=== PATIENT | male | born 1955 | race Caucasian/White ===

== ENCOUNTER 2019-12-06 12:34 | Emergency (ER) | payer BC, MEDICARE ==
[~2019-12-06] VITALS: Ht 195.6 cm; Wt 86.1 kg
[2019-12-06] MEDS ORDERED: SODIUM CHLORIDE FLUSH 10ML SYR IVF ONE (14:00)
[2019-12-06] MEDS ORDERED: SODIUM CHLORIDE 0.9% 1,000ML IVBOLUS ONE (14:00)
[2019-12-06 14:14] LABS: BASOPHILS # (AUTO) 0.01 x10^3/uL (0-0.1); BASOPHILS % (AUTO) 0 % (0-1); EOSINOPHILS # (AUTO) 0.05 x10^3/uL (0-0.4); EOSINOPHILS % (AUTO) 1 % (1-7); LYMPHOCYTES # (AUTO) 1.13 x10^3/uL (1-3.4); LYMPHOCYTES % (AUTO) 13 % (22-44); MD NO; MEAN CORPUSCULAR HEMOGLOBIN 29.3 pg (27.5-34.5); MEAN CORPUSCULAR HGB CONC 32.7 g/dL (33.2-36.2); MEAN CORPUSCULAR VOLUME 89.3 fL (81-97); MEAN PLATELET VOLUME 8.9 fL (7.4-10.4); MONOCYTES # (AUTO) 0.38 x10^3/uL (0.2-0.8); MONOCYTES % (AUTO) 4 % (2-9); NEUTROPHILS # (AUTO) 7.06 x10^3/uL (1.8-6.8); NEUTROPHILS % (AUTO) 82 % (42-75); PLATELET COUNT 314 x10^3/uL (130-400); RED BLOOD COUNT 3.77 x10^6/uL (4.38-5.82); RED CELL DISTRIBUTION WIDTH 17.4 % (9.4-14.8)
--- NOTE | 2019-12-06 14:19 | NUR ---
ISOLATION CART PLACED OUTSIDE PT ROOM, PT MADE AWARE AND SUPPLIED WITH ITEMS FOR FECAL COLLECTION. PT STATED "HE TOOK AMMODIUM AND WILL NOT HAVE TO GO FOR A WHILE"
[2019-12-06 14:26] LABS: ALBUMIN 1.9 g/dL (3.4-5.0); ANION GAP 7 mmol/L (5-15); CHLORIDE 106 mmol/L (98-107)
[2019-12-06 14:29] LABS: ALANINE AMINOTRANSFERASE 71 U/L (12-78); ALKALINE PHOSPHATASE 498 U/L (45-117); BILIRUBIN,TOTAL 0.7 mg/dL (0.2-1.0); CREATININE 0.94 mg/dL (0.7-1.3); TOTAL PROTEIN 7.9 g/dL (6.4-8.2)
--- NOTE | 2019-12-06 14:57 | NUR ---
pt resting in bed , pt denied genia wants or needs at this time, pt on monitor and teletypewriter installer will continue to monitor pt. pt denied needing to go to bathroom at this time for fecal sample
[2019-12-06 16:10] VITALS: BP 118/76
--- NOTE | 2019-12-06 17:52 | NUR ---
PT STATED HE WANTED TO LEAVE AND THAT WE WILL NO FIND ANYTHING IN HIS STOOL AND TO TAKE IV OOUT SO HE CAN LEAVE. PT IV REMOVED AND PT ELOPED
[2019-12-06 18:34] LABS: CLOSTRIDIUM DIFFICILE ANTIGEN NEGATIVE; CLOSTRIDIUM DIFFICILE TOXIN NEGATIVE (Negative)
== END 2019-12-06 17:53 | disposition left against medical advice (07) ==
LOC: ED 13:36
DX: R53.1 Weakness (principal); R11.0 Nausea; R19.7 Diarrhea, unspecified; R00.0 Tachycardia, unspecified; G89.29 Other chronic pain
CPT/HCPCS: 36415; 80053; 85025; 87324; 89055; 93005; 96360; 99284; J7030